=== PATIENT | female | born 1980 | race Hispanic/Latino ===

== ENCOUNTER 2017-09-21 14:22 | Emergency (ER) | payer OTHER ==
[2017-09-21 15:12] LABS: Bilirubin Negative (Negative); Blood, Urine Trace (Negative); Clarity CLOUDY (Clear); Glucose, Urine (Dipstick) 100 mg/dL (Negative); Leukocyte Large (Negative); Nitrite Negative (Negative); Protein, Urine (Dipstick) 30 mg/dL (Neg-Trace); Specific Gravity, Urine 1.008 (1.002-1.036); Urobilinogen 0.2 mg/dL (0.2-1.0); pH, Urine 7.5 (5.0-9.0)
[2017-09-21 15:15] LABS: Bacteria/HPF 4+ HPF (None Seen); Hyaline Casts/LPF 0-3 HYALINE CAST LPF (0-3 Hyaline); Pathc Cast-AUWi Flag 0.94 (0-2.49)
[2017-09-21 15:17] LABS: #Lymphocytes 0.7 thou/uL (1.20-3.40); #Monocytes 0.5 thou/uL (0.11-0.59); #Neutrophils 7.6 thou/uL (1.40-6.50); %Basophils 0.2 % (0.0-1.0); %Eosinophils 0.2 % (0.0-10.0); %Lymphocytes 7.3 % (21.0-51.0); %Monocytes 6.1 % (0.0-10.0); %Neutrophils 86.2 % (42.0-75.0); Hemoglobin 12.3 g/dL (12.0-16.0); Mean Corpuscular HGB CONC 35.5 g/dL (32.0-36.0); Mean Corpuscular Hemoglobin 31.9 pg (27.0-31.0); Mean Platelet Volume 7.9 fL (7.4-10.4); Platelet Count 188 thou/uL (130-400); RBC Distribution Width 12.2 % (11.5-14.5); Red Blood Cell (RBC) Count 3.86 mill/uL (4.20-5.40); White Blood Cell (WBC) Count 8.9 thou/uL (4.8-10.8)
[2017-09-21 15:18] LABS: Yeast-AUWi Flag 291.2 (0-25.0)
[2017-09-21 15:25] LABS: Yeast-All Forms None Seen HPF (None Seen)
[2017-09-21 15:37] LABS: ALT (SGPT) 7 U/L (8-55); AST (SGOT) 19 U/L (5-34); Albumin 3.9 g/dL (3.5-5.0); Alkaline Phosphatase 68 U/L (40-150); Anion Gap 10 mmol/L (10-20); BUN (Urea Nitrogen) 8 mg/dL (7.0-18.7); Bilirubin, Total 0.9 mg/dL (0.2-1.2); Calc. Creatinine Clearance 0 mL/min (70-130); Calcium 9.7 mg/dL (7.8-10.44); Carbon Dioxide 27 mmol/L (22-29); Chloride 100 mmol/L (98-107); Estimated GFR-MDRD 73; Globulin 3.7 g/dL (2.4-3.5); Glucose 103 mg/dL (70-105); Potassium 3.3 mmol/L (3.5-5.1); Protein, Total 7.6 g/dL (6.0-8.3); Sodium 134 mmol/L (136-145)
[2017-09-21 16:55] LABS: BHCG - Serum POSITIVE (NEGATIVE); Pregs Control Background? CLEAR/WHITE (CLR/WHITE); Pregs Control Bar Appear? YES (CONTROL BAR)
[2017-09-21] MEDS ORDERED: Ondansetron HCl/PF 4 MG/2 ML Vial ONE (18:49)
[2017-09-21] MEDS ORDERED: Acetaminophen 500 MG TAB ONE (18:49)
[2017-09-21] MEDS ORDERED: Famotidine/PF 20 mg/2ml Vial ONE (19:14)
[2017-09-21] MEDS ORDERED: cefTRIAXone\\ROCEPHIN 1 GM, Syringe 0.4 ML in Sterile Water 9.6 ML SLOW IVP SCH (19:15)
--- NOTE | 2017-09-21 20:11 | ULT ---
GALLBLADDER ULTRASOUND: History: Abdominal pain. FINDINGS: There is mild echogenic sludge. No definite gallstone. Gallbladder wall appears normal. Common duct i s normal caliber at 2 mm. Liver appears unremarkable. Pancreas is partially imaged and appears unremarkable as visualized. The right kidney shows prominence of the collecting structures consistent with mild right hydronephro sis. IMPRESSION: 1. Evidence of mild echogenic sludge in the gallbladder. No gallstones identified. 2. Evidence of mild right hydronephrosis. POS: [facility]
--- NOTE | 2017-09-21 20:12 | ULT ---
OB ULTRASOUND: History: Abdominal pain. FINDINGS: There is a viable intrauterine . Gestational age by ultrasound is 16 weeks 0 days. Biometry measurements are consistent. heart rate recorded at 155 beats/minute. Profunda: Posterior Presentation: Vertex Amniotic fluid: Within normal range IMPRESSION: 16 week 0 day gestation by ultrasound measurement. No abnormality identified. POS: [facility]
== END 2017-09-21 20:25 | disposition home or self-care (01) ==
LOC: ERS 14:22
DX: O23.42 Unspecified infection of urinary tract in pregnancy, second trimester (principal); Z3A.16 16 weeks gestation of pregnancy
CPT/HCPCS: 36415; 76705; 76815; 80053; 81003; 81015; 83690; 84702; 84703; 85025; 87077; 87086; 87186; 96361; 96374; 96375; J0696; J2405; S0028

== ENCOUNTER 2018-03-11 18:52 | Emergency (ER) | payer OTHER, SELFPAY ==
--- NOTE | 2018-03-11 20:47 | RAD ---
ONE VIEW CHEST; 03/11/18 HISTORY: Pain. COMPARISON: None. FINDINGS: Normal cardiac silhouette. The pulmonary vessels and hilum are normal. Costophrenic angles are clear. There is a focal opacity in the left upper lobe. No pneumothorax or osseous abnormalities. IMPRESSION: Left upper lobe opacity probably due to infiltrate. Continued surveillance to ensure resolution. POS: [facility]
--- NOTE | 2018-03-13 11:57 | EKG ---
Test Reason : Blood Pressure : / mmHG Vent. Rate : 060 BPM Atrial Rate : 060 BPM P-R Int : 130 ms QRS Dur : 070 ms QT Int : 428 ms P-R-T Axes : 060 034 056 degrees QTc Int : 428 ms Normal sinus rhythm Possible Left atrial enlargement Borderline ECG No ST elevation/SC Confirmed by FRANCO ALBARADO ([id number]), editor in chief newspaper TOÑO SANCHEZ ([id number]) on 03/13/2018 11:57:50 AM Referred By: Confirmed By:FRANCO ALBARADO
== END 2018-03-11 21:50 | disposition home or self-care (01) ==
LOC: ERS 18:52
DX: S80.11XA Contusion of right lower leg, initial encounter (principal); S20.02XA Contusion of left breast, initial encounter; V89.2XXA Person injured in unspecified motor-vehicle accident, traffic, initial encounter; W22.10XA Striking against or struck by unspecified automobile airbag, initial encounter
CPT/HCPCS: 71045; 93005

== ENCOUNTER 2019-10-24 22:31 | Emergency (ER) | payer OTHER, SELFPAY ==
[2019-10-24 22:56] LABS: #Eosinphils 0.1 thou/uL (0.0-0.7); #Lymphocytes 1.5 thou/uL (1.20-3.40); #Monocytes 0.3 thou/uL (0.11-0.59); #Neutrophils 3.5 thou/uL (1.40-6.50); %Basophils 0.4 % (0.0-1.0); %Eosinophils 1.2 % (0.0-10.0); %Lymphocytes 28.1 % (21.0-51.0); %Monocytes 6.1 % (0.0-10.0); %Neutrophils 64.2 % (42.0-75.0); Hemoglobin 12.3 g/dL (12.0-16.0); Mean Corpuscular HGB CONC 35.5 g/dL (32.0-36.0); Mean Corpuscular Hemoglobin 31.3 pg (27.0-31.0); Mean Corpuscular Volume 88.3 fL (78.0-98.0); Mean Platelet Volume 9.6 fL (7.4-10.4); Platelet Count 152 thou/uL (130-400); RBC Distribution Width 11.2 % (11.5-14.5); Red Blood Cell (RBC) Count 3.92 mill/uL (4.20-5.40); White Blood Cell (WBC) Count 5.4 thou/uL (4.8-10.8)
[2019-10-24] MEDS ORDERED: Morphine 4 MG/ML VIAL ONE (23:12)
[2019-10-24 23:38] LABS: Bacteria/HPF None Seen HPF (None Seen); Bilirubin Negative (Negative); Blood, Urine 3+ (Negative); Clarity Turbid (Clear); Glucose, Urine (Dipstick) Normal (Negative); Leukocyte Negative Leu/uL (Negative); Nitrite Negative (Negative); Protein, Urine (Dipstick) 20 mg/dL (Neg-Trace); RBC/HPF Greater than 50 HPF (0-3); Squamous Epithelial None Seen HPF (0-3); Urobilinogen Normal mg/dL (Less than 2)
[2019-10-24 23:39] LABS: WBC/HPF 0-3 HPF (0-3)
--- NOTE | 2019-10-24 23:48 | ULT ---
Ultrasound of the pelvis: 10/24/2019 COMPARISON:None available HISTORY: with vaginal bleeding TECHNIQUE: Multiplanar grayscale sonographic imaging of the pelvis obtained with transabdominal. Ovar ies are assessed with Doppler interrogation including color flow and spectral analysis. FINDINGS: The uterus [id number] x 4.7 x 7.5 cm and demonstrates an endometrial thickness of1.1 cm. No intrauterine gestational sac is noted. There is prominent echogenic material within the lower uterine segment and endocervical canal suggesting blood products. The right ovary measures2.7 x 1.5 x 2.0 cm. The left ovary measures2.8 x 2.0 x 2.3 cm. Both ovaries demonstrate normal blood flow. No ovarian or adnexal mass. No free fluid in the pelvis. IMPRESSION:No intrauterine gestational sac noted. Echogenic material within the lower uterine segment /endocervical canal, which may signify blood products. If the patient is in fact , findings may reflect spontaneous . Correlation with quantitative beta-hCG at this time and in 48 hours is essential.
[2019-10-25] MEDS ORDERED: Ondansetron PF 4 MG/2 ML Vial ONE (01:20)
== END 2019-10-25 02:38 | disposition home or self-care (01) ==
LOC: ERS 22:31
DX: O03.9 Complete or unspecified spontaneous abortion without complication (principal); R11.0 Nausea
CPT/HCPCS: 36415; 76856; 81003; 81015; 84702; 85025; 86900; 86901; 88305; 93976; 96361; 96374; 96375; J2270; J2405

== ENCOUNTER 2020-01-27 13:48 | Emergency (ER) | payer OTHER ==
[2020-01-27 14:21] LABS: #Lymphocytes 1.1 thou/uL (1.20-3.40); #Monocytes 0.3 thou/uL (0.11-0.59); #Neutrophils 3.2 thou/uL (1.40-6.50); %Basophils 0.7 % (0.0-1.0); %Eosinophils 0.7 % (0.0-10.0); %Lymphocytes 23.7 % (21.0-51.0); %Monocytes 7.1 % (0.0-10.0); %Neutrophils 67.8 % (42.0-75.0); Hemoglobin 13.7 g/dL (12.0-16.0); Mean Corpuscular HGB CONC 35.5 g/dL (32.0-36.0); Mean Corpuscular Hemoglobin 30.8 pg (27.0-31.0); Mean Corpuscular Volume 86.8 fL (78.0-98.0); Mean Platelet Volume 9.7 fL (7.4-10.4); Platelet Count 158 thou/uL (130-400); RBC Distribution Width 11.6 % (11.5-14.5); Red Blood Cell (RBC) Count 4.45 mill/uL (4.20-5.40); White Blood Cell (WBC) Count 4.8 thou/uL (4.8-10.8)
[2020-01-27 15:34] LABS: Bacteria/HPF None Seen HPF (None Seen); Bilirubin Negative (Negative); Blood, Urine 3+ (Negative); Clarity Clear (Clear); Glucose, Urine (Dipstick) 70 mg/dL (Negative); Leukocyte Negative Leu/uL (Negative); Nitrite Negative (Negative); Protein, Urine (Dipstick) Negative (Neg-Trace); RBC/HPF 0-3 HPF (0-3); Squamous Epithelial 0-3 HPF (0-3); Urobilinogen Normal mg/dL (Less than 2); WBC/HPF 0-3 HPF (0-3)
--- NOTE | 2020-01-27 17:16 | ULT ---
PELVIC ULTRASOUND: 01/27/20 HISTORY: Pelvic pain in a female and vaginal bleeding. TECHNIQUE: Multiplanar sage scale and color Doppler images were obtained in a transabdominal pelvic ultrasound. Spectral analysis of the Doppler waveforms of the ovaries were performed. FINDINGS: The uterus is normal in appearance without evidence of intrauterine . The endometrial strip e is thickened measuring 1.4 cm in greatest dimension. No free fluid is seen in the pelvis. Both ovaries are normal in size and appearance and demonstrate n ormal internal flow. A dominant follicle seen in the right ovary. IMPRESSION: No evidence of intrauterine or ectopic . POS: [facility]
== END 2020-01-27 16:10 | disposition home or self-care (01) ==
LOC: ERS 13:48
DX: O20.0 Threatened abortion (principal); Z3A.01 Less than 8 weeks gestation of pregnancy
CPT/HCPCS: 36415; 76856; 81003; 81015; 84702; 85025; 86900; 86901; 93976; 99284

== ENCOUNTER 2021-07-16 18:28 | Emergency (ER) | payer OTHER, SELFPAY ==
[~2021-07-16 18:28] MED LIST: Iopamidol-370 76% 500 ML 1 ML ONE
[2021-07-16 20:47] LABS: #Lymphocytes 0.8 thou/uL (1.20-3.40); #Monocytes 0.4 thou/uL (0.11-0.59); #Neutrophils 8.1 thou/uL (1.40-6.50); %Basophils 0.1 % (0.0-1.0); %Eosinophils 0.4 % (0.0-10.0); %Lymphocytes 8.6 % (21.0-51.0); %Monocytes 4.3 % (0.0-10.0); %Neutrophils 86.7 % (42.0-75.0); Hemoglobin 13.2 g/dL (12.0-16.0); Mean Corpuscular HGB CONC 34.6 g/dL (32.0-36.0); Mean Corpuscular Hemoglobin 30.1 pg (27.0-31.0); Mean Platelet Volume 8.6 fL (7.4-10.4); Platelet Count 184 thou/uL (130-400); RBC Distribution Width 12.9 % (11.5-14.5); Red Blood Cell (RBC) Count 4.38 mill/uL (4.20-5.40); White Blood Cell (WBC) Count 9.3 thou/uL (4.8-10.8)
[2021-07-16 21:03] LABS: Bacteria/HPF None Seen HPF (None Seen); Bilirubin Negative (Negative); Blood, Urine 1+ (Negative); Clarity Clear (Clear); Glucose, Urine (Dipstick) Normal (Negative); Ketone, Urine Negative (Negative); Leukocyte 75 Leu/uL (Negative); Nitrite Negative (Negative); Protein, Urine (Dipstick) Negative (Neg-Trace); RBC/HPF 0-3 HPF (0-3); Specific Gravity, Urine 1.016 (1.002-1.036); Squamous Epithelial None Seen HPF (0-3); Urobilinogen Normal mg/dL (Less than 2); pH, Urine 5.5 (5.0-9.0)
[2021-07-16 21:10] LABS: ALT (SGPT) 25 U/L (8-55); AST (SGOT) 16 U/L (5-34); Albumin 3.7 g/dL (3.5-5.0); Alkaline Phosphatase 147 U/L (40-110); Anion Gap 11 mmol/L (10-20); BUN (Urea Nitrogen) 11 mg/dL (7.0-18.7); Bilirubin, Total 0.3 mg/dL (0.2-1.2); Calc. Creatinine Clearance 0 mL/min (70-130); Calcium 8.6 mg/dL (7.8-10.44); Carbon Dioxide 26 mmol/L (22-29); Chloride 107 mmol/L (98-107); Globulin 3.2 g/dL (2.4-3.5); Glucose 110 mg/dL (70-105); Potassium 3.7 mmol/L (3.5-5.1); Protein, Total 6.9 g/dL (6.0-8.3); Sodium 140 mmol/L (136-145)
== END 2021-07-17 00:45 | disposition home or self-care (01) ==
LOC: ERS 18:28
DX: J18.9 Pneumonia, unspecified organism (principal)
CPT/HCPCS: 36415; 71045; 71275; 80053; 81003; 81015; 84484; 85025; 85379; 87086; 93005; Q9967

== ENCOUNTER 2022-11-26 08:46 | Outpatient (CLI) | payer OTHER | END 2022-11-26 08:47 | disposition home or self-care (01) | LOC: BICRAD 08:46 | PROVIDERS: ATTEND Family Medicine | DX: R76.12 Nonspecific reaction to cell mediated immunity measurement of gamma interferon antigen response without active tuberculosis (principal); J98.4 Other disorders of lung | CPT/HCPCS: 71046 ==